=== PATIENT | female | born 1965 | race Caucasian/White ===

== ENCOUNTER 2017-02-01 08:02 | Day surgery (SDC) | payer OTHER ==
[~2017-02-01] VITALS: Ht 147.3 cm; Wt 72.4 kg
[~2017-02-01 08:02] MED LIST: LEVO125T75 PO
[2017-02-01 09:00] VITALS: Ht 147.3 cm; Wt 72.4 kg
[2017-02-01 09:38] VITALS: BP 112/60; PULSE 71; RESP 18
[2017-02-01 10:16] VITALS: BP 104/56; PULSE 60; RESP 12
[2017-02-01] MEDS ORDERED: MIDAZOLAM 1 MG/ML 2 ML INJ ONE ×3 (10:22→10:23)
[2017-02-01] MEDS ORDERED: FENTAnyl 50 MCG/ML VIAL ONE (10:22)
--- NOTE | 2017-02-01 10:45 | GILP ---
DATE OF PROCEDURE: 02/01/2017 NAME OF PROCEDURES: Colonoscopy and biopsy. SURGEON: Benita Harper MD PREOPERATIVE DIAGNOSES: Rectal bleeding. POSTOPERATIVE DIAGNOSES: 1. Colonoscopy all the way to the cecum. 2. Two small polyps, one from the transverse colon and another from the sigmoid colon were removed using the biopsy forceps. 3. Internal and external hemorrhoids. INDICATION FOR THE PROCEDURE: Ms. Heather Mauricio is a 51-year-old female patient who was com plaining of rectal bleeding. The patient was scheduled for colonoscopy for further evaluation. The procedure and possible complications were well explained to the patient. The patient understood and consented to the procedure. DESCRIPTION OF PROCEDURE: Under the influence of fentanyl and Versed, the colonoscope was carefully introduced in the rectum and under direct vision, it was advanced all the way to the cecum. FINDINGS: The patient had 2 small polyps, one in the transverse colon and another one in the sigmoi d, and they were removed using the biopsy forceps. The patient was noted to have internal and exter nal hemorrhoids. She tolerated the procedure very well and there was no complication from the procedure. At the end of the procedures, she was awake with stable vital signs and she was discharged home to the care of her family. IMPRESSION: 1. Colonoscopy all the way to the cecum. 2. Two small polyps, one from the transverse colon and another one from the sigmoid were removed us ing the biopsy forceps. 3. Internal hemorrhoids. PLAN: Anusol-HC 2.5% cream b.i.d. p.r.n. for hemorrhoids. PLAN: Await histopathology report. Next screening colonoscopy in 10 years. Dictated By: BENITA HARPER MD GD/NTS Conf#: [id number] DID#: [id number] CC: BENITA HARPER MD;*EndCC*
[2017-02-01 11:04] VITALS: BP 115/68; PULSE 63; RESP 18
--- NOTE | 2017-02-01 20:24 | CONS ---
DATE OF ADMISSION: 02/01/2017 DATE OF CONSULTATION: 01/17/[address] Preciado: I thank you very much for this kind referral. HISTORY OF PRESENT ILLNESS: Ms. [place] Mauricio is a 51-year-old female patient who has been referr ed to me for further evaluation of rectal bleeding. The patient has history of colon polyps. She h as noticed a change in the bowel habit with constipation. Her appetite has been good, and she is no t losing any weight. She does not have any upper abdominal pain, nausea or vomiting. There is no h istory of peptic ulcer disease. She is not taking any nonsteroidal anti-inflammatory agents. There is no history of gallstones. She does not have any fever, chills or jaundice. The patient has his tory of fatty liver. She is not a hypertensive or diabetic. She does not have any heart disease or lung problem. There is no history of kidney disease. She has got hypothyroidism. She is status p ost hysterectomy. SOCIAL HISTORY: She is a nonsmoker. She does not abuse alcohol. FAMILY HISTORY: Particular for the history of gastric cancer in her aunt. ALLERGIES: THERE IS NO HISTORY OF SIGNIFICANT DRUG ALLERGY. MEDICATIONS: Levothyroxine. PHYSICAL EXAMINATION: VITAL SIGNS: She is 4 feet 10 inches tall and she weighs 164 pounds. HEART: Examination of the heart reveals normal first and second heart sounds. LUNGS: Clear. ABDOMEN: Soft without any distention. Liver and spleen are not palpable. There are no masses. Th ere is no focal tenderness. Normal bowel sounds are heard. RECTAL: Examination deferred per the patient's request. She states this has been recently done by the surgeon and no rectal mass was identified. CENTRAL NERVOUS SYSTEM: Does not reveal any focal neurological deficit. IMPRESSION: 1. Rectal bleeding. 2. History of colon polyps. 3. Change in the bowel habit. 4. Fatty liver. 5. Hypothyroidism. 6. Status post hysterectomy. 7. Family history of gastric cancer. PLAN: Colonoscopy for further evaluation. The procedure and possible complications are well explained to the patient. She understands and con sents to the procedure. I thank you once again. With warmest personal regards, Dictated By: BENITA MAYA/NTS Conf#: [id number] DID#: [id number] CC: BENITA HARPER MD;*[facility]*
== END 2017-02-01 13:21 | disposition home or self-care (01) ==
LOC: GIL 08:02
PROVIDERS: ATTEND Internal Medicine Gastroenterology
DX: R19.4 Change in bowel habit (principal); K63.5 Polyp of colon; K64.4 Residual hemorrhoidal skin tags; K64.8 Other hemorrhoids; E03.9 Hypothyroidism, unspecified
CPT/HCPCS: 45380; 88305; J2250; J3010; Z7610

== ENCOUNTER 2017-11-23 06:10 | Day surgery (SDC) | END 2017-11-23 10:55 | disposition home or self-care (01) ==